=== PATIENT | female | born 1995 | race Caucasian/White ===

== ENCOUNTER 2024-01-27 18:05 | Emergency (ER) | payer SELFPAY ==
[~2024-01-27] VITALS: Ht 167.6 cm; Wt 79.4 kg
[2024-01-27] MEDS ORDERED: Ketorolac Tromethamine 60 MG/2 ML VIAL IM ONE (19:10)
[2024-01-27] MEDS ORDERED: IBUPROFEN600 MG PO (21:16)
== END 2024-01-27 21:23 | disposition home or self-care (01) ==
LOC: ED 18:05
DX: S59.902A Unspecified injury of left elbow, initial encounter (principal); W18.49XA Other slipping, tripping and stumbling without falling, initial encounter; Y93.89 Activity, other specified; Y92.89 Other specified places as the place of occurrence of the external cause; Y99.8 Other external cause status